=== PATIENT | female | born 1955 | race Caucasian/White ===

== ENCOUNTER 2018-12-03 08:48 | Emergency (ER) | payer OTHER ==
[~2018-12-03] VITALS: Ht 152.4 cm; Wt 49.4 kg
[2018-12-03 09:07] LABS: URINE BILIRUBIN NEGATIVE (Negative); URINE BLOOD 1+ (Negative); URINE CLARITY CLEAR; URINE COLOR YELLOW; URINE GLUCOSE-RANDOM* NEGATIVE (Negative); URINE KETONES NEGATIVE (Negative); URINE LEUKOCYTES-REFLEX NEGATIVE (Negative); URINE NITRITE-REFLEX NEGATIVE (Negative); URINE PROTEIN (DIPSTICK) NEGATIVE (Negative); URINE UROBILINOGEN 0.2 E.U./dl (0.2-1.0)
[2018-12-03 09:22] LABS: CASTS None Seen /LPF (None Seen); CRYSTALS None Seen /LPF (None Seen); URINE RBC None Seen /HPF (0-2); URINE WBC-REFLEX None Seen /HPF (0-5)
[2018-12-03 09:23] LABS: BACTERIA-REFLEX None Seen /HPF (None Seen); SQUAMOUS 0-3 Few /LPF (0-3)
[2018-12-03 09:29] LABS: HEMATOCRIT 34.5 % (37.0-47.0); HEMOGLOBIN 11.7 gm/dL (12.0-15.0); MCH 32.6 pg (26.0-34.0); MCHC 33.8 g/dL (28.0-37.0); MCV 96.3 fL (80.0-100.0); RBC 3.58 mil/uL (4.20-5.00); RDW 15.1 % (10.5-14.5); WBC 5.5 thou/uL (4.0-11.0)
[2018-12-03 09:36] LABS: ANION GAP 10 mmol/L (7-16); BUN 15 mg/dL (7-18); CALCIUM 9.4 mg/dL (8.5-10.1); CHLORIDE 104 mmol/L (98-107); CO2 25 mmol/L (21-32); CREATININE 0.8 mg/dL (0.6-1.0); GLUCOSE 160 mg/dL (74-106); POTASSIUM 3.5 mmol/L (3.5-5.1); SODIUM 139 mmol/L (136-145)
[2018-12-03 09:46] LABS: ALBUMIN 3.7 g/dL (3.4-5.0); LIPASE 123 U/L (73-393); SGOT 17 U/L (15-37); SGPT 27 U/L (30-65); TOTAL BILIRUBIN 0.6 mg/dL (<0.1-1.0); TROPONIN-I <0.06 ng/mL (<0.06)
[2018-12-03] MEDS ORDERED: ZOFRAN ODT4 MG PO (10:30)
[2018-12-03] MEDS ORDERED: IBUPROFEN 400400 M2 PO (10:31)
[2018-12-03 10:47] VITALS: BP 119/58
--- NOTE | 2018-12-04 15:22 | EKG ---
[place] [address] [facility] [address] ELECTROCARDIOGRAM REPORT Name: NISH GILES [id number] ������������������ Admission: 12/03/18 ������������������ Attend Phys: Discharge: 12/03/18 ������������������ Date of : 51 Report #: [id number] ����������������������������������������������������������������� [id number] THIS REPORT FOR: //name// [facility] ED Test Date: 2018-12-03 Test Time: 09:15:53 Pat Name: NISH GILES Department: Room: Gender: F Financial Associate: : 1955 Requested By: Chiquis Stern Order Number: [id number] MD: Peterson Peralta Measurements Intervals [place] Rate: 60 P: 22 NH: 193 QRS: 33 QRSD: 97 T: 27 QT: 451 QTc: 451 Interpretive Statements Sinus rhythm Nonspecific ST segment abnormality No previous ECG available for comparison Electronically Signed On 12-04-2018 15:21:47 CDT by Peterson Peralta [email or web address] ��������������������������������������������� <ELECTRONICALLY SIGNED> ���������������������������������������� By: Peterson Peralta MD, [facility] ��������������������������������������������� 12/04/18 1521 0915 4 Peterson Peralta MD, FACC /EPI
== END 2018-12-03 10:48 | disposition home or self-care (01) ==
LOC: ER 08:48
PROVIDERS: Student in an Organized Health Care Education/Training Program
DX: K52.9 Noninfective gastroenteritis and colitis, unspecified (principal); E11.9 Type 2 diabetes mellitus without complications; M19.90 Unspecified osteoarthritis, unspecified site; J45.909 Unspecified asthma, uncomplicated; Z98.890 Other specified postprocedural states; Z87.19 Personal history of other diseases of the digestive system

== ENCOUNTER → 2019-01-13 | Outpatient (CLI) | payer OTHER ==
[~2019-01-13] MED LIST: IBUPROFEN 400400 M2 PO; ZOFRAN ODT4 MG PO
--- NOTE | 2019-01-13 15:44 | 2DMMODE ---
[facility] [place] [place] [place] [address] 2 D/M-MODE ECHOCARDIOGRAM Name: TISHANISH Room #: REG [facility]#: [id number] ������������� Admission: 01/13/19 ������������� Attend Phys: Logan Pretty, Discharge: ��� ������������� ��� Date of : 51 Date of Service: 01/13/19 1544 �� Report #: [id number] �������� ��������������������������������������������[id number] THIS REPORT FOR: //name// APPROVED REPORT Study performed: 01/13/2019 14:46:39 EXAM: Comprehensive 2D, Doppler, and color-flow Echocardiogram Patient Location: Out-Patient Room #: Echo lab 2 Status: routine BSA: 1.48 HR: 71 bpm BP: 122/74 mmHg Rhythm: NSR Other Information Study Quality: Good Indications Dyspnea 2D Dimensions RVDd: 25.85 mm IVSd: 10.39 (7-11mm) LVOT Diam: 20.72 (18-24mm) LVDd: 46.53 mm PWd: 10.00 (7-11mm) Ascending Ao: 30.63 (22-36mm) LVDs: 28.73 (25-40mm) Aortic Root: 25.82 mm IVC: 15.00 mm Volumes Left Atrial Volume (Systole) Single Plane 4CH: 26.67 mL Single Plane 2CH: 26.09 mL LA ESV Index: 25.00 mL/m2 Aortic Valve AoV Peak Mukund.: 1.25 m/s AO Peak Gr.: 6.24 mmHg LVOT Max P.41 mmHg LVOT Max V: 1.05 m/s KAYLA Vmax: 2.83 cm2 Mitral Valve E/A Ratio: 0.9 MV Decel. Time: 405.57 ms MV E Max Mukund.: 0.62 m/s [facility] [address] [place] [address] 2 D/M-MODE ECHOCARDIOGRAM Name: TISHANISH Room #: [facility]#: [id number] ������������� Admission: 01/13/19 ������������� Attend Phys: Logan Pretty, Discharge: ��� ������������� ��� Date of : 51 Date of Service: 01/13/19 1544 �� Report #: [id number] �������� ��������������������������������������������[id number] MV A Mukund.: 0.72 m/s MV PHT: 117.62 ms IVRT: 161.48 ms Pulmonary Valve PV Peak Mukund.: 0.88 m/s PV Peak Gr.: 3.09 mmHg Pulmonary Vein P Vein S: 0.56 m/s P Vein A: 0.21 m/s P Vein D: 0.37 m/s P Vein A Dur.: 92.3 msec P Vein S/D Ratio: 1.51 Tricuspid Valve TR Peak Mukund.: 1.87 m/s TR Peak Gr.: 14.00 mmHg PA Pressure: 19.00 mmHg Left Ventricle The left ventricle is normal size. There is normal LV segmental wall motion. There is normal left ventricular wall thickness. Left ventricular systolic function is normal. The left ventricular ejection fraction is within the normal range. LVEF is 60-65%. Grade I - abnormal relaxation pattern. Right Ventricle The right ventricle is normal size. The right ventricular systolic function is normal. Atria The left atrium size is normal. The right atrium size is normal. Aortic Valve The aortic valve is normal in structure. No aortic regurgitation is present. There is no aortic valvular stenosis. Mitral Valve The mitral valve is normal in structure. Trace mitral regurgitation. No evidence of mitral valve stenosis. Tricuspid Valve The tricuspid valve is normal in structure. There is trace tricuspid regurgitation. Estimated PAP 19 mmHg. There is no pulmonary hypertension. Pulmonic Valve [address] [address] 2 D/M-MODE ECHOCARDIOGRAM Name: NISH GILES Room #: REG [facility] Carissa#: [id number] ������������� Admission: 01/13/19 ������������� Attend Phys: Logan Pretty, Discharge: ��� ������������� ��� Date of : 51 Date of Service: 01/13/19 1544 �� Report #: [id number] �������� ��������������������������������������������[id number] The pulmonary valve is normal in structure. Trace pulmonic regurgitation. Great Vessels The aortic root is normal in size. IVC is normal in size and collapses >50% with inspiration. Pericardium There is no pericardial effusion. <Conclusion> The left ventricle is normal size. LVEF is 60-65%. Grade I - abnormal relaxation pattern. The right ventricle is normal size. The left atrium size is normal. The aortic valve is normal in structure. Trace mitral regurgitation. The tricuspid valve is normal in structure. The aortic root is normal in size. There is no pericardial effusion. ��������������������������������������������� <ELECTRONICALLY SIGNED> ���������������������������������������� By: Sammy Carroll MD, FACC ��������������������������������������������� 01/13/19 1544 1544 1544 Sammy Carroll MD, FACC /INF
== END ==
LOC: CV 14:31
DX: R06.02 Shortness of breath (principal); R53.82 Chronic fatigue, unspecified; R06.00 Dyspnea, unspecified

== ENCOUNTER → 2019-04-03 | Outpatient (CLI) | payer OTHER | LOC: ULTRA 15:41 | DX: R22.2 Localized swelling, mass and lump, trunk (principal) ==

== ENCOUNTER 2019-05-15 05:42 | Day surgery (SDC) | payer OTHER ==
[~2019-05-15] VITALS: Ht 154.9 cm; Wt 52.6 kg
[~2019-05-15 05:42] MED LIST changes: +ALENDRONATE SOD70 MG PO; +CENTRUM SILVER1 EAC5 PO; +ENBREL50 MG/1 ML; +MELOXICAM15 MG PO; +METFORMIN HCL500 MG PO; +METHOTREXA25 MG/1 M4 IM; +PROAIR HFA8.5 GM INH; +SUPER B-50 COM1 EACH PO; +SYMBICORT80 MCG/4.1 INH; +VITAMIN C1000 MG PO
[2019-05-15 07:03] VITALS: BP 133/68
[2019-05-15] MEDS ORDERED: OXYCODONE HCL 55 MG PO (08:34)
[2019-05-15] MEDS ORDERED: COLACE 100 MG100 MG PO (08:35)
[2019-05-15] MEDS ORDERED: ACETAMINOPHEN325 M1 PO (08:35)
[2019-05-15] MEDS ORDERED: MIRALAX17 GM PO (08:36)
[2019-05-15 08:46] VITALS: BP 133/68
--- NOTE | 2019-05-15 15:02 | O ---
[facility] [place] [address] OPERATIVE REPORT Name: NISH GILES Room #: [facility] [place]#: [id number] Admission: 05/15/19 Attend Phys: Ciro Ruiz MD Discharge: 05/15/19 Date of : 51 Report #: [id number] THIS REPORT FOR: //name// CC: Ciro Pretty DATE OF SERVICE: 05/15/2019 PROCEDURE PERFORMED: Excision of left back mass. PREPROCEDURAL DIAGNOSIS: Painful left back mass. POSTPROCEDURAL DIAGNOSIS: Painful left back mass. SURGEON: Dr. Ruiz. CELERY CUTTER: None. ANESTHESIA: 1. General 2. Local. ESTIMATED BLOOD LOSS: Less than 5 mL. URINE OUTPUT: Not measured. COMPLICATIONS: None. FINDINGS: Small 2 cm subcutaneous mass sent for pathology. INDICATIONS FOR PROCEDURE: The patient is a 64-year-old female with a painful left mass, mass has been present for quite some time and is causing her pain and worry. The patient is concerned that this started with an acupuncture event. The risks, benefits and alternatives of the procedure were discussed with the patient. The risks discussed included but were not limited to the risk of bleeding, infection, damage to nearby anatomy, anesthesia, and . The patient had the opportunity to ask questions. All questions were answered to the best of my ability. At the end of the discussion, she wished to proceed. DESCRIPTION OF PROCEDURE: After informed consent was obtained as above, the patient was taken to the operating room and placed in supine position. General anesthesia was induced. She was transitioned to the right lateral decubitus position. Preprocedure antibiotics were administered. Her left back was prepped and draped in the usual sterile fashion. A timeout was performed. A 3 cm incision was made overlying the mass. The incision was carried down through the subcutaneous tissue and fascia using electrocautery. The mass was right on [address] [address] OPERATIVE REPORT Name: NISH GILES Room #: [facility] Tracy#: [id number] Admission: 05/15/19 Attend Phys: Ciro Ruiz MD Discharge: 05/15/19 Date of : 51 Report #: [id number] top of the paraspinal muscle aponeurosis, was dissected out circumferentially and sent to the pathologist. Hemostasis was present. The wound was irrigated out. The fascia was closed using 2-0 Vicryl in a continuous running fashion. Deep dermal layer was closed using 2-0 Vicryl in an interrupted fashion. The subcuticular layer was closed using 3-0 Monocryl in running subcuticular fashion. The area was cleaned and dried and Steri-Strips were applied. The patient tolerated the procedure well. There were no adverse events throughout the course of procedure. <ELECTRONICALLY SIGNED> By: Ciro Ruiz MD 05/15/19 [id number] [id number] MD jose r Wiley
--- NOTE | 2019-05-17 10:28 | PATH ---
[facility] [address] [place] [address] PATHOLOGY RPT PROCEDURE Name: LACEY GILES Room #: [place] [facility] [place] M.R.#: [id number] Admission: 05/15/19 Date of : 51 Discharge: 05/15/19 Report #: [id number] Path Case #: [id number] [facility] Accession Number: [id number] . 01 Material submitted: . back - LEFT BACK MASS. Modifiers: left . 01 Clinical history: . Localized swelling, mass and lump trunk . 02 Diagnosis: Mature adipose tissue, left back mass, excision: - Compatible with lipoma. (IUV/db; 05/16/2019) LBQ 05/16/2019 1336 Local . 02 Electronically signed: . Nisha Collins MD, Pathologist NPI- [id number] . 01 Gross description: . The specimen is received in formalin, labeled "Lacey Giles, left back mass" and consists of a segment of yellow orange lobulated tissue measuring 2.8 x 2.4 x 0.6 cm. Sectioning reveals no gross lesions and admitting representative sections are submitted in A1. (SDY; 05/15/2019) SYU/SYU 05/15/2019 1238 Local . 02 Pathologist provided ICD-10: D17.79 . 02 CPT . 898765 Specimen Comment: A courtesy copy of this report has been sent to [phone] Specimen Comment: Report sent to Specimen Comment: A duplicate report has been generated due to demographic updates. Performed at: [address], [place], [place] [id number] MD Artem Latham MD Phone: [phone] Performed at: [address] [id number] MD Nisha Collins MD Phone: [phone]
== END 2019-05-15 09:40 | disposition home or self-care (01) ==
LOC: TBA 05:42 → OR 05:42
DX: D17.1 Benign lipomatous neoplasm of skin and subcutaneous tissue of trunk (principal); E11.9 Type 2 diabetes mellitus without complications; J45.909 Unspecified asthma, uncomplicated; M19.90 Unspecified osteoarthritis, unspecified site; Z98.890 Other specified postprocedural states; Z79.899 Other long term (current) drug therapy
CPT/HCPCS: 50010; 50101; 50386; 50417; 56524; 56526; 62110; 62900; 70005

== ENCOUNTER → 2019-12-28 | Outpatient (CLI) | payer OTHER ==
[~2019-12-28] MED LIST changes: +ACETAMINOPHEN325 M1 PO; +COLACE 100 MG100 MG PO; +MIRALAX17 GM PO; +OXYCODONE HCL 55 MG PO
[2019-12-28 16:42] LABS: ABSOLUTE NEUTROPHILS 2.7 thou/uL (1.4-8.2); BASOPHILS 0.8 % (0.0-2.0); EOSINOPHILS 3.4 % (0.0-3.0); HEMATOCRIT 31.8 % (37.0-47.0); HEMOGLOBIN 11.2 gm/dL (12.0-15.0); LYMPHOCYTES 33.2 % (24.0-44.0); MCHC 35.3 g/dL (28.0-37.0); MCV 93.6 fL (80.0-100.0); MONOCYTES 9.5 % (1.0-8.0); PLATELET COUNT 249 thou/uL (150-400); POLYS 53.1 % (36.0-66.0); RBC 3.39 mil/uL (4.20-5.00); RDW 14.4 % (10.5-14.5); WBC 5.1 thou/uL (4.0-11.0)
[2019-12-28 16:58] LABS: ALBUMIN 3.9 g/dL (3.4-5.0); ANION GAP 9 mmol/L (7-16); BUN 16 mg/dL (7-18); CALCIUM 9.3 mg/dL (8.5-10.1); CHLORIDE 97 mmol/L (98-107); CO2 27 mmol/L (21-32); CREATININE 0.7 mg/dL (0.6-1.0); GLUCOSE 105 mg/dL (74-106); POTASSIUM 4.1 mmol/L (3.5-5.1); SGOT 19 U/L (15-37); SGPT 29 U/L (30-65); SODIUM 133 mmol/L (136-145); TOTAL BILIRUBIN 0.3 mg/dL (0.2-1.0); TOTAL PROTEIN 7.8 g/dL (6.4-8.2)
== END ==
LOC: LAB 12-27 15:50
PROVIDERS: ATTEND Internal Medicine Rheumatology
DX: M05.9 Rheumatoid arthritis with rheumatoid factor, unspecified (principal); I10 Essential (primary) hypertension

== ENCOUNTER → 2020-04-02 | Outpatient (CLI) | payer OTHER ==
[2020-04-02 16:19] LABS: HEMATOCRIT 32.1 % (37.0-47.0); MCHC 34.4 g/dL (28.0-37.0); MCV 96.1 fL (80.0-100.0); PLATELET COUNT 224 thou/uL (150-400); RBC 3.34 mil/uL (4.20-5.00); RDW 15.1 % (10.5-14.5); WBC 5.4 thou/uL (4.0-11.0)
[2020-04-02 16:33] LABS: ALBUMIN 3.9 g/dL (3.4-5.0); CALCIUM 9.9 mg/dL (8.5-10.1); POTASSIUM 4.4 mmol/L (3.5-5.1); TOTAL BILIRUBIN 0.4 mg/dL (0.2-1.0); TOTAL PROTEIN 7.9 g/dL (6.4-8.2)
[2020-04-02 19:12] LABS: ABSOLUTE NEUTROPHILS 2.3 thou/uL (1.4-8.2)
[2020-04-02 19:13] LABS: PLATELET ESTIMATE NORMAL
== END ==
LOC: LABMALL 15:52
PROVIDERS: ATTEND Family Medicine
DX: R53.82 Chronic fatigue, unspecified (principal)

== ENCOUNTER → 2020-06-21 | Outpatient (CLI) | payer OTHER ==
[2020-06-21 16:26] LABS: BASOPHILS 0.5 % (0.0-2.0); EOSINOPHILS 2.7 % (0.0-3.0); HEMATOCRIT 31.5 % (37.0-47.0); HEMOGLOBIN 10.6 gm/dL (12.0-15.0); LYMPHOCYTES 32.5 % (24.0-44.0); MCH 32.2 pg (26.0-34.0); MCHC 33.8 g/dL (28.0-37.0); MCV 95.5 fL (80.0-100.0); MONOCYTES 10.5 % (1.0-8.0); PLATELET COUNT 204 thou/uL (150-400); POLYS 53.8 % (36.0-66.0); RDW 14.3 % (10.5-14.5); WBC 5.6 thou/uL (4.0-11.0)
[2020-06-21 16:41] LABS: ALBUMIN 3.8 g/dL (3.4-5.0); ANION GAP 9 mmol/L (7-16); BUN 24 mg/dL (7-18); CALCIUM 9.6 mg/dL (8.5-10.1); CHLORIDE 99 mmol/L (98-107); CO2 27 mmol/L (21-32); CREATININE 0.9 mg/dL (0.6-1.0); GLUCOSE 108 mg/dL (74-106); POTASSIUM 3.9 mmol/L (3.5-5.1); SGOT 16 U/L (15-37); SGPT 30 U/L (14-59); SODIUM 135 mmol/L (136-145); TOTAL BILIRUBIN 0.3 mg/dL (0.2-1.0); TOTAL PROTEIN 7.7 g/dL (6.4-8.2)
== END ==
LOC: LAB 15:53
PROVIDERS: ATTEND Internal Medicine Rheumatology
DX: M05.9 Rheumatoid arthritis with rheumatoid factor, unspecified (principal)

== ENCOUNTER → 2020-09-20 | Outpatient (CLI) | payer OTHER ==
[2020-09-20 16:54] LABS: ABSOLUTE NEUTROPHILS 2.3 thou/uL (1.4-8.2); BASOPHILS 0.6 % (0.0-2.0); EOSINOPHILS 2.9 % (0.0-3.0); HEMATOCRIT 32.6 % (37.0-47.0); HEMOGLOBIN 11.2 gm/dL (12.0-15.0); LYMPHOCYTES 32.9 % (24.0-44.0); MCH 33.1 pg (26.0-34.0); MCHC 34.2 g/dL (28.0-37.0); MCV 96.9 fL (80.0-100.0); MONOCYTES 9.1 % (1.0-8.0); PLATELET COUNT 240 thou/uL (150-400); POLYS 54.5 % (36.0-66.0); RBC 3.37 mil/uL (4.20-5.00); WBC 4.2 thou/uL (4.0-11.0)
[2020-09-20 17:08] LABS: ALBUMIN 3.9 g/dL (3.4-5.0); ANION GAP 10 mmol/L (7-16); BUN 19 mg/dL (7-18); CALCIUM 9.9 mg/dL (8.5-10.1); CHLORIDE 103 mmol/L (98-107); CO2 26 mmol/L (21-32); CREATININE 0.8 mg/dL (0.6-1.0); GLUCOSE 134 mg/dL (74-106); POTASSIUM 3.9 mmol/L (3.5-5.1); SGOT 18 U/L (15-37); SGPT 29 U/L (30-65); SODIUM 139 mmol/L (136-145); TOTAL BILIRUBIN 0.4 mg/dL (0.2-1.0)
== END ==
LOC: LAB 16:05
PROVIDERS: ATTEND Internal Medicine Rheumatology
DX: M05.9 Rheumatoid arthritis with rheumatoid factor, unspecified (principal)

== ENCOUNTER 2021-04-22 15:38 | Emergency (ER) | payer OTHER ==
[~2021-04-22] VITALS: Ht 149.9 cm; Wt 53.5 kg
[2021-04-22 15:55] LABS: ABSOLUTE NEUTROPHILS 13.8 thou/uL (1.4-8.2); BASOPHILS 0.3 % (0.0-2.0); HEMATOCRIT 33.2 % (37.0-47.0); LYMPHOCYTES 8.1 % (24.0-44.0); MCH 31.6 pg (26.0-34.0); MCHC 33.1 g/dL (28.0-37.0); MCV 95.4 fL (80.0-100.0); MONOCYTES 4.6 % (1.0-8.0); PLATELET COUNT 256 thou/uL (150-400); RBC 3.48 mil/uL (4.20-5.00); RDW 14.6 % (10.5-14.5); WBC 15.9 thou/uL (4.0-11.0)
[2021-04-22 16:03] LABS: URINE BILIRUBIN NEGATIVE (Negative); URINE BLOOD TRACE (Negative); URINE CLARITY CLEAR; URINE COLOR YELLOW; URINE GLUCOSE-RANDOM* NEGATIVE (Negative); URINE KETONES NEGATIVE (Negative); URINE LEUKOCYTES-REFLEX NEGATIVE (Negative); URINE NITRITE-REFLEX NEGATIVE (Negative); URINE PROTEIN (DIPSTICK) NEGATIVE (Negative); URINE UROBILINOGEN 0.2 E.U./dl (0.2-1.0)
[2021-04-22 16:15] LABS: CALCIUM 9.6 mg/dL (8.5-10.1); CREATININE 0.8 mg/dL (0.6-1.0); POTASSIUM 4.3 mmol/L (3.5-5.1); TOTAL BILIRUBIN 0.4 mg/dL (0.2-1.0); TOTAL PROTEIN 8.1 g/dL (6.4-8.2)
[2021-04-22 16:55] VITALS: BP 117/59
--- NOTE | 2021-04-23 07:18 | EKG ---
[address] [address] ELECTROCARDIOGRAM REPORT Name: NISH GILES [facility] [id number] Admission: 04/22/21 Attend Phys: Discharge: 04/22/21 Date of : 51 Report #: [id number] [facility] ED Test Date: 2021-04-22 Test Time: 15:55:25 Pat Name: NISH GILES Department: Room: Gender: F Striker Out: [place]ALINA : 1955 Requested By: Reno Ruvalcaba Order Number: [id number] MD: Dalton Alvarez Measurements Intervals [place] Rate: 78 P: 48 CA: 185 QRS: 28 QRSD: 88 T: 67 QT: 376 QTc: 429 Interpretive Statements Sinus rhythm Probable left atrial enlargement Baseline wander in lead(s) II,aVR Compared to ECG 12/03/2018 09:15:53 No significant changes Electronically Signed On 04-23-2021 7:18:21 ENAMEL DRIER by Dalton Alvarez [email or web address] <ELECTRONICALLY SIGNED> By: Dalton Alvarez MD, [facility] 04/23/21 07 1555 1555 Dalton Alvarez MD, FACC /EPI
== END 2021-04-22 16:55 | disposition home or self-care (01) ==
LOC: ER 15:38
PROVIDERS: Emergency Medicine
DX: E86.0 Dehydration (principal); J45.909 Unspecified asthma, uncomplicated; E11.9 Type 2 diabetes mellitus without complications; M19.90 Unspecified osteoarthritis, unspecified site; Z98.890 Other specified postprocedural states; Z79.51 Long term (current) use of inhaled steroids; Z79.84 Long term (current) use of oral hypoglycemic drugs; Z79.899 Other long term (current) drug therapy

== ENCOUNTER → 2021-04-22 | Outpatient (CLI) | payer OTHER ==
[2021-04-22 08:28] LABS: ABSOLUTE NEUTROPHILS 14.5 thou/uL (1.4-8.2); BASOPHILS 0.3 % (0.0-2.0); HEMATOCRIT 35.3 % (37.0-47.0); HEMOGLOBIN 11.6 gm/dL (12.0-15.0); LYMPHOCYTES 5.2 % (24.0-44.0); MCH 31.6 pg (26.0-34.0); MCHC 32.9 g/dL (28.0-37.0); MCV 96.2 fL (80.0-100.0); PLATELET COUNT 264 thou/uL (150-400); POLYS 92.5 % (36.0-66.0); RBC 3.67 mil/uL (4.20-5.00); RDW 14.9 % (10.5-14.5); WBC 15.6 thou/uL (4.0-11.0)
[2021-04-22 09:02] LABS: ALBUMIN 3.9 g/dL (3.4-5.0); ANION GAP 11 mmol/L (7-16); BUN 13 mg/dL (7-18); CALCIUM 9.2 mg/dL (8.5-10.1); CHLORIDE 99 mmol/L (98-107); CO2 24 mmol/L (21-32); CREATININE 0.7 mg/dL (0.6-1.0); GLUCOSE 153 mg/dL (74-106); SGOT 13 U/L (15-37); SGPT 22 U/L (30-65); SODIUM 134 mmol/L (136-145); TOTAL BILIRUBIN 0.5 mg/dL (0.2-1.0); TOTAL PROTEIN 8.1 g/dL (6.4-8.2)
== END ==
LOC: LAB 06:52
PROVIDERS: ATTEND Internal Medicine Rheumatology
DX: M05.9 Rheumatoid arthritis with rheumatoid factor, unspecified (principal)